=== PATIENT | female | born 1990 | race Caucasian/White ===

== ENCOUNTER 2020-08-01 20:04 | Emergency (ER) | payer OTHER, SELFPAY ==
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
[2020-08-01 20:07] VITALS: BP 134/75; PULSE 89; RESP 16; TEMP 37.1; O2SAT 100; BMI 30.1
[2020-08-01] MEDS: Cyclobenzaprine HCl 10 MG TABLET PO (22:33)
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
--- NOTE | 2020-08-01 23:16 | PC.NURSE ---
Patient moved to 21. report given.
[2020-08-01 23:50] LABS: UPreg QC Valid YES; Urine Pregnancy NEGATIVE (NEGATIVE)
[2020-08-02 00:40] VITALS: BP 112/61; PULSE 68; RESP 16; O2SAT 100
== END 2020-08-02 01:24 | disposition home or self-care (01) ==
PROVIDERS: Nurse Practitioner Family; Emergency Provider Emergency Medicine
DX: S13.4XXA Sprain of ligaments of cervical spine, initial encounter (principal); S16.1XXA Strain of muscle, fascia and tendon at neck level, initial encounter; S29.012A Strain of muscle and tendon of back wall of thorax, initial encounter; M54.2 Cervicalgia; M54.5 Low back pain; V43.52XA Car driver injured in collision with other type car in traffic accident, initial encounter; Y93.9 Activity, unspecified; Y92.410 Unspecified street and highway as the place of occurrence of the external cause
CPT/HCPCS: 71046; 72040; 72100; 72220; 81025; 99283; 99284

== ENCOUNTER 2021-05-02 06:06 | Emergency (ER) | payer OTHER, SELFPAY ==
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
[2021-05-02 06:13] VITALS: BP 112/71; BP 123/67; PULSE 108; PULSE 127; RESP 16; TEMP 36.9; O2SAT 98; BMI 29.5
--- NOTE | 2021-05-02 06:23 | ECG_ITS ---
Test Reason : HEAD INJURY Blood Pressure : / mmHG Vent. Rate : 097 BPM Atrial Rate : 097 BPM P-R Int : 136 ms QRS Dur : 082 ms QT Int : 362 ms P-R-T Axes : 071 006 019 degrees QTc Int : 459 ms Normal sinus rhythm Possible Left atrial enlargement Borderline ECG No previous ECGs available Referred By: Dea Villarreal Electronically Signed By:KAITLYNN CASTILLO
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
[2021-05-02 06:36] LABS: UPreg QC Valid YES; Urine Pregnancy NEGATIVE (NEGATIVE)
[2021-05-02 06:49] LABS: MANUAL DIFF FLAG NO
[2021-05-02 06:55] LABS: Basophils Absolute Auto 0.1 X10*3/uL (0.0-0.2); Eosinophils Absolute Auto 0.3 X10*3/uL (0.0-0.4); Eosinophils Percent Auto 5.2 % (0-4); Hematocrit 39.7 % (37-47); Hemoglobin 13.4 g/dl (12.0-16.0); Imm Gran Abs Auto 0.03 X10*3/uL (0.00-0.03); Imm Gran Pct Auto 0.5 % (0.0-0.4); Lymphocytes Absolute Auto 2.2 X10*3/uL (1.2-4.9); Lymphocytes Percent Auto 36.8 % (20-40); Mean Corpuscular HGB Conc 33.8 g/dl (31.0-35.0); Mean Corpuscular Hemoglobin 30.6 pg (27.0-33.0); Mean Corpuscular Volume 90.6 fL (80-98); Mean Platelet Volume 11.4 fL (9.4-12.3); Monocytes Absolute Auto 0.7 X10*3/uL (0.1-1.2); Monocytes Percent Auto 11.2 % (2-11); Neutrophils Absolute Auto 2.7 X10*3/uL (2.0-8.3); Neutrophils Percent Auto 45.3 % (45-73); Platelet Count 203 X10*3/uL (160-400); Red Blood Count 4.38 X10*6/uL (4.20-5.50); Red Cell Distribution Width 11.9 % (11.0-16.0)
--- NOTE | 2021-05-02 07:02 | PC.NURSE ---
pt taken to ct and report given to Sukhdeep GARCIA
[2021-05-02 07:17] LABS: Anion Gap 12 (12-20); Blood Urea Nitrogen 12 mg/dL (9-16); Carbon Dioxide 24 mmol/L (22-29); Chloride 106 mmol/L (96-108); Creatinine Clr Calc Pharmacy 91.7; Estimated Glomerular Filt Rate > 60; Glucose Random 102 mg/dL (60-115); Potassium 3.4 mmol/L (3.3-5.1); Sodium 139 mmol/L (135-145)
== END 2021-05-02 08:46 | disposition home or self-care (01) ==
PROVIDERS: Emergency Provider Emergency Medicine Emergency Medical Services; PCP Internal Medicine
DX: S09.90XA Unspecified injury of head, initial encounter (principal); R93.7 Abnormal findings on diagnostic imaging of other parts of musculoskeletal system; X58.XXXA Exposure to other specified factors, initial encounter; Y93.9 Activity, unspecified; Y92.9 Unspecified place or not applicable; Y99.9 Unspecified external cause status
CPT/HCPCS: 36415; 70450; 72125; 80048; 81025; 85025; 93005; 99283; 99285